=== PATIENT | female | born 1950 | race Caucasian/White ===

== ENCOUNTER 2024-06-15 06:08 | Day surgery (SDC) | payer OTHER ==
[2024-06-13 09:34] LABS: PH,URINE 6.5 (5.0-8.0); URINE APPEARANCE Clear; URINE BILIRRUBIN Negative (NEGATIVE); URINE BLOOD Negative; URINE COLOR Yellow; URINE GLUCOSE Negative (NEGATIVE); URINE KETONE Negative (NEGATIVE); URINE LEUKOCYTE Large; URINE NITRATE Negative; URINE PROTEIN Negative (NEGATIVE)
[2024-06-13 09:39] LABS: HEMATOCRIT 34.3 % (36.0-45.00); HEMOGLOBIN 11.9 g/dL (12.0-15.00); MEAN CELL VOLUME 84.6 fL (80.00-100.00); MEAN CORPUSCULAR HEMOGLOBIN 29.4 pg (27.00-32.0); MEAN CORPUSCULAR HGB CONC 34.8 g/dl (32.0-36.0); PLATELET COUNT 202 K/uL (150-450); RED BLOOD COUNT 4.05 M/uL (4.00-6.00)
[2024-06-13 09:41] LABS: URINE BACTERIA 4196.8 uL (0.0-1933); URINE EPITHELIAL CELLS 43.5 uL (0.0-38.8); URINE RBC 6.1 uL (0.0-20.8); URINE WBC 96.3 uL (0.0-23.2)
[2024-06-13 10:12] LABS: INR 1.3; PROTHROMBIN TIME 13.9 SECONDS (9.0-11.5)
[2024-06-13 10:13] LABS: PARTIAL THROMBOPLASTIN TIME 38.9 SECONDS (22.0-34.0)
[2024-06-13 10:50] LABS: ALBUMIN 3.7 gm/dL (3.4-5.0); BILIRUBIN TOTAL 0.68 mg/dL (0.3-1.2); CALCIUM 9.1 mg/dL (8.5-10.1); CREATININE SERUM 0.79 mg/dL (0.55-1.02); GFR 71.34; GLOBULINA 3.2 G/DL (2.4-3.5); POTASSIUM 3.77 mEq/L (3.5-5.1); TOTAL PROTEIN 6.9 gm/dL (6.4-8.2)
[2024-06-15] MEDS ORDERED: CEFAZOLIN SODIUM 1,000 MG VIAL ONE (12:30)
[2024-06-15] MEDS ORDERED: CHLORHEXIDINE GLUCONATE 120 ML BOTTLE TOP ONE (14:49)
== END 2024-06-15 18:40 | disposition home or self-care (01) ==
LOC: CIR.AMB 06:08
PROVIDERS: ATTEND Surgery
DX: C50.811 Malignant neoplasm of overlapping sites of right female breast (principal); D48.61 Neoplasm of uncertain behavior of right breast
CPT/HCPCS: 19301; 19281; L8699

== ENCOUNTER 2024-06-15 07:07 | Outpatient (CLI) | payer OTHER ==
[2024-06-15 09:13] LABS: INR 1.21; PARTIAL THROMBOPLASTIN TIME 37.4 SECONDS (22.0-34.0)
== END 2024-06-15 07:16 | disposition home or self-care (01) ==
LOC: LAB 07:07
PROVIDERS: ATTEND Internal Medicine
DX: D48.61 Neoplasm of uncertain behavior of right breast (principal); D65 Disseminated intravascular coagulation [defibrination syndrome]